=== PATIENT | female | born 1995 | race Caucasian/White ===

== ENCOUNTER 2017-01-23 06:43 | Emergency (ER) | payer SELFPAY ==
[~2017-01-23] VITALS: Ht 154.9 cm; Wt 44.5 kg
--- NOTE | 2017-01-23 07:40 | ED GENERAL ADULT ---
History of Present Illness General Chief Complaint: Female Urogenital Problems Stated Complaint: UTI Source: patient Exam Limitations: no limitations Vital Signs & Intake/Output Vital Signs & Intake/Output Vital Signs Date Time Temp Pulse Resp B/P B/P Pulse O2 O2 Flow FiO2 Mean Ox Delivery Rate 01/23 0805 99 Room Air 01/23 0655 98.1 82 16 117/80 98 Room Air Allergies Coded Allergies: No Known Allergies (01/23/17) Reconcile Medications Nitrofurantoin Macrocrystal (Macrodantin) 100 MG CAPSULE 1 CAP PO BID UTI Triage Note: PT COMPLAINS OF 4 DAYS OF BURNING WITH URINATION, ITCHING AND DISCHARGE. PT HAS BEEN TAKING AZO WITH SOME RELIEF Triage Nurses Notes Reviewed? yes Onset: Abrupt Duration: day(s): Timing: recent history : No Patient currently breastfeeds: No HPI: 01/23/17 7 AM 21-year-old female presents to the emergency department for frequency urgency and dysuria. She says over the past 4 days she's had urinary hesitancy and dysuria. She denies fever or abdominal pain or other complaints. She says in the middle of December she had a medication induced . She says she's had intermittent vaginal bleeding since. She said she followed up with [facility] on Thursday and had an ultrasound that she said was negative. The onset of the symptoms have been abrupt, the duration has been several days, the severity is significant as her symptoms required her to come to the emergency department for care. She denies fever or other complaints. Past History Travel History Traveled to [place] past 21 day No Medical History Any Pertinent Medical History? 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 No Review of Systems Review of Systems Constitutional: Denies: fever. EENTM: Reports: no symptoms. Respiratory: Reports: no symptoms. Cardiovascular: Reports: no symptoms. GI: Denies: abdominal pain. Genitourinary: Reports: dysuria, frequency, urgency. Musculoskeletal: Denies: back pain. Skin: Denies: rash. Neurological/Psychological: Reports: no symptoms. Hematologic/Endocrine: Reports: bleeding. Immunologic/Allergic: Reports: no symptoms. Physical Exam Physical Exam General Appearance: well developed/nourished, alert, awake, anxious, mild distress Head: atraumatic, normal appearance Eyes: Bilateral: normal appearance, PERRL, EOMI. Ears, Nose, Throat: normal pharynx, normal ENT inspection Neck: normal inspection, supple Respiratory: normal breath sounds, chest non-tender, no respiratory distress Cardiovascular: regular rate/rhythm Back: normal range of motion Extremities: no edema Neurologic/Psych: no motor/sensory deficits, awake, alert, oriented x 3 Skin: intact, normal color, warm/dry Core Measures ACS in differential dx? No CVA/TIA Diagnosis: No Severe Sepsis Present: No Septic Shock Present: No Progress Differential Diagnoses I considered the following diagnoses in my evaluation of the patient: [Early , retained products, UTI, ectopic ] Plan of Care: Orders Procedure Date/time Status Add-on Test (ER Only) 01/23 0740 Active COMPREHENSIVE METABOLIC PANEL 01/23 0738 Complete CBC WITHOUT DIFFERENTIAL 01/23 07 Complete TYPE & SCREEN (NOT X-MATCH) 01/23 0728 Complete Add-on Test (ER Only) 01/23 0726 Active HUMAN BETA HCG TITRE 01/23 0726 Complete CHLAMYDIA-GC DNA PROBE 01/23 0700 Active URINE 01/23 0700 Complete CULTURE,URINE 01/23 0654 Active URINALYSIS 01/23 0654 Complete Laboratory Tests 01/23/17 0738: Anion Gap 11, Estimated GFR > 60, BUN/Creatinine Ratio 21.4, Glucose 66, Calcium 9.5, Total Bilirubin 0.4, AST 19, ALT 35, Alkaline Phosphatase 52, Total Protein 7.4, Albumin 4.4, Globulin 3.0, Albumin/Globulin Ratio 1.5, Beta HCG, Quant 148.4 01/23/17 0728: Sodium Cancelled, Potassium Cancelled, Chloride Cancelled, Carbon Dioxide Cancelled, Anion Gap Cancelled, BUN Cancelled, Creatinine Cancelled, BUN/ Creatinine Ratio Cancelled, Glucose Cancelled, Calcium Cancelled, Total Bilirubin Cancelled, AST Cancelled, ALT Cancelled, Alkaline Phosphatase Cancelled, Total Protein Cancelled, Albumin Cancelled, Globulin Cancelled, Albumin/Globulin Ratio Cancelled 01/23/17 0703: Urine Test POSITIVE 01/23/17 0703: Urinalysis LIGHT H, Urine Color YEL, Urine Clarity HAZY H, Urine pH 6.0, Ur Specific [place] 1.025, Urine Protein 100 H, Urine Ketones NEG, Urine Nitrite POS H, Urine Bilirubin NEG, Urine Urobilinogen 0.2, Ur Leukocyte Esterase MOD H, Ur Microscopic SEDIMENT EXAMINED, Urine RBC >75 H, Urine WBC > 75 H, Ur Epithelial Cells MOD H, Urine Bacteria MOD H, Urine Mucus FEW, Urine Hemoglobin LARGE H, Urine Glucose NEG 01/23/17 0630: CBC w Diff NO MAN DIFF REQ, RBC 4.08 L, MCV 85.2, MCH 27.6, RDW 13.4, MPV 7.4, Gran % 58.6, Lymphocytes % 28.1, Monocytes % 8.8, Eosinophils % 4.2, Basophils % 0.3, Absolute Granulocytes 5.9, Absolute Lymphocytes 2.9, Absolute Monocytes 0.9 H, Absolute Eosinophils 0.4, Absolute Basophils 0, PUBS MCHC 32.4 L Microbiology 01/23 700 URINE ROUT: GC DNA Probe - RECD 01/23 700 URINE ROUT: Chlamydia DNA Probe (BRISEIDA) - RECD 01/23 0654 URINE ROUT: Urine Culture - RECD Initial ED EKG: none Departure Departure Disposition: STILL A PATIENT Condition: Stable Clinical Impression Primary Impression: UTI (urinary tract infection) Referrals: PATIENT HAS NO PRIMARY CARE DR (PCP/Family) Departure Forms: Customer Survey General Discharge Information Prescriptions: Current Visit Scripts Nitrofurantoin Macrocrystal (Macrodantin) 1 CAP PO BID #[id number] CAP Comments 01/23/17 7;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 Awaiting urine results. 01/23/17 9 AM The patient has no abdominal pain or vaginal bleeding at this time. Quantitative beta hCG is less than 200. She will take Macrobid as instructed. She will follow-up with the [employer]EL[employer] physician on Thursday after repeat QBHCG has been done. Critical Care Note Critical Care Note Critical Care Time: non-applicable
[2017-01-23] MEDS ORDERED: MACRODANTIN100 M1 PO (07:42)
[2017-01-23 08:12] LABS: ABSOLUTE BASOPHIL COUNT 0 /CUMM (0.0-0.2); ABSOLUTE EOSINOPHIL COUNT 0.4 /CUMM (0.0-0.7); ABSOLUTE GRANULOCYTE CT 5.9 /CUMM (1.4-6.5); ABSOLUTE LYMPH COUNT 2.9 /CUMM (1.2-3.4); ABSOLUTE MONOCYTE COUNT 0.9 /CUMM (0.10-0.60); BASOPHIL % 0.3 % (0.0-2.0); EOSINOPHIL % 4.2 % (0-5); GRANULOCYTE % 58.6 % (42.2-75.2); HEMATOCRIT 34.8 % (37-47); MEAN CORPUSCULAR HGB 27.6 PG (27.0-31.0); MEAN CORPUSCULAR HGB CONC 32.4 G/DL (33.0-37.0); MEAN CORPUSCULAR VOLUME 85.2 FL (81.0-99.0); MEAN PLATELET VOLUME 7.4 FL (7.4-10.4); PLATELET COUNT 373 /CUMM (130-400); RBC DISTRIBUTION WIDTH 13.4 % (11.5-14.5); RED BLOOD CELL CT 4.08 /CUMM (4.20-5.40); WHITE BLOOD CELL COUNT 10.1 /CUMM (4.8-10.8)
[2017-01-23 08:57] VITALS: BP 110/74
== END 2017-01-23 08:58 ==
LOC: ERH 06:43
PROVIDERS: Emergency Medicine
DX: N39.0 Urinary tract infection, site not specified (principal)
CPT/HCPCS: 81001; 81025; 87086; 87491; 87591